=== PATIENT | female | born 1970 | race Caucasian/White ===

== ENCOUNTER 2017-01-31 20:15 | Emergency (ER) | payer MEDICAID ==
[~2017-01-31] VITALS: Ht 172.7 cm; Wt 64.6 kg
[2017-01-31 20:23] VITALS: BP 130/82
[2017-01-31] MEDS ORDERED: HYDROcodone/APAP 5/325 TABLET ONE (21:23)
[2017-01-31] MEDS ORDERED: HYDROcodone/APAP 5/325 TABLET PO ONE (21:30)
== END 2017-01-31 21:54 | disposition home or self-care (01) ==
LOC: ED 21:19
DX: S63.511A Sprain of carpal joint of right wrist, initial encounter (principal); S63.632A Sprain of interphalangeal joint of right middle finger, initial encounter; W22.8XXA Striking against or struck by other objects, initial encounter; Y93.89 Activity, other specified; Y99.8 Other external cause status; Y92.89 Other specified places as the place of occurrence of the external cause
CPT/HCPCS: 29125; 99284

== ENCOUNTER 2017-10-18 10:36 | Emergency (ER) | payer MEDICAID ==
[~2017-10-18] VITALS: Ht 172.7 cm; Wt 62.0 kg
[2017-10-18 10:38] VITALS: BP 124/80
[2017-10-18] MEDS ORDERED: IBUPROFEN 800 MG TABLET PO ONE (11:30)
[2017-10-18] MEDS ORDERED: IBUPROFEN 200 MG TABLET ONE (11:30)
== END 2017-10-18 12:09 ==
LOC: ED 12:01
DX: S60.222A Contusion of left hand, initial encounter (principal); X58.XXXA Exposure to other specified factors, initial encounter; Y93.89 Activity, other specified; Y92.009 Unspecified place in unspecified non-institutional (private) residence as the place of occurrence of the external cause; Y99.8 Other external cause status
CPT/HCPCS: 29125; 99284